=== PATIENT | female | born 1955 | race Caucasian/White ===

== ENCOUNTER 2022-11-06 12:08 | Outpatient (CLI) | payer MEDICARE, SELFPAY ==
--- NOTE | ~2022-11-06 | MM_ITS ---
EXAMINATION: MM diagnostic dennis LT w dylan HISTORY: Lump, lateral left breast/axillary area TECHNIQUE: Full field and spot ML, MLO and CC 3-D tomosynthesis images of the left breast were perfor med and synthetic 2-D images were generated. CAD analysis was submitted and interpreted. High resolut ion left upper outer and lower outer quadrant and left axillary breast ultrasound was performed. COMPARISON: Serial mammogram and ultrasound examinations dating back to 06/09/2017 BREAST PARENCHYMAL COMPOSITION: There are scattered areas of fibroglandular density. FINDINGS: MAMMOGRAPHIC FINDINGS: No interval suspicious mass or architectural distortion, malignant calcification, skin thickening or retraction of the left breast is evident. There are scattered benign calcifications. There is a biopsy marker on the left; history of prior benign left breast biopsy. ULTRASOUND: No suspicious mass or shadowing, cyst or other significant sonographic abnormality of the upper outer or lower outer quadrants of the left breast is detected. No left axillary mass lesion or abnormal shadowing is detected. IMPRESSION: 1. No mammographic evidence of malignancy 2. Routine mammographic screening is recommended. BI-RADS Category 1: Negative Reviewed, dictated and finalized at location A. ER SPRINKLER
--- NOTE | ~2022-11-06 | US_ITS ---
US breast LT limited DATE: 11/06/2022 15:12 INDICATION: Lateral left breast/axillary lump TECHNIQUE: Real-time and color flow imaging and Doppler analysis of the upper outer and lower-outer q uadrants of the left breast COMPARISON: November 06, 2019 diagnostic left mammogram FINDINGS: No suspicious mass or shadowing of the upper outer or lower outer quadrants of left breast is detected. IMPRESSION: BI-RADS Category 1: Negative Reviewed, dictated and finalized at Location A. Reviewed, dictated and finalized at location A. TICS PHYSICIAN
--- NOTE | ~2022-11-06 | US_ITS ---
US axilla LT DATE: 11/06/2022 15:12 INDICATION: Left lateral breast/axillary lump TECHNIQUE: Real-time and color flow imaging and Doppler analysis of the left axillary soft tissues COMPARISON: None FINDINGS: No suspicious mass or shadowing or other significant sonographic abnormality of the left ax illa is detected. IMPRESSION: Negative Reviewed, dictated and finalized at Location A. Reviewed, dictated and finalized at location A. VISION PRODUCTION ASSISTANT IMPRESSION: Negative
== END 2022-11-06 12:09 | disposition home or self-care (01) ==
PROVIDERS: PCP Emergency Medicine; Visit Provider Emergency Medicine
DX: N63.20 Unspecified lump in the left breast, unspecified quadrant (principal); R92.2 Inconclusive mammogram
CPT/HCPCS: 76642; 76882; 77061; 77065; G0279

== ENCOUNTER 2022-11-24 10:28 | Outpatient (CLI) | payer MEDICARE, SELFPAY ==
--- NOTE | 2022-11-24 10:32 | ECG_ITS ---
Measurements Intervals [place] Rate: P: NE: QRS: QRSD: T: QT: QTc: Interpretive Statements SINUS RHYTHM LEFT AXIS DEVIATION RIGHT BUNDLE BRANCH BLOCK LEFT VENTRICULAR HYPERTROPHY BASELINE ARTIFACT- I, II, III, AVR, AVL, AVF, V1-V6 ABNORMAL ECG Electronically Signed On 11-24-2022 14:04:43 CDT by Horace Galdamez D.O.
[2022-11-24 11:32] LABS: Anion Gap 4 mmol/L (8-16); Blood Urea Nitrogen 16 mg/dL (7-17); Calcium 8.9 mg/dL (8.4-10.2); Carbon Dioxide 31 mmol/L (22-30); Chloride 104 mmol/L (98-107); Estimated Glomerular Filt Rate > 60; Glucose 226 mg/dL (65-110); Potassium 4.5 mmol/L (3.4-5.0); Sodium 139 mmol/L (137-145)
== END 2022-11-24 10:29 | disposition home or self-care (01) ==
LOC: ANHSURGERY 10:31
PROVIDERS: Anesthesiology; PCP Emergency Medicine; Visit Provider Surgery
DX: E11.9 Type 2 diabetes mellitus without complications (principal); I10 Essential (primary) hypertension; I45.10 Unspecified right bundle-branch block
CPT/HCPCS: 36415; 80048; 93005

== ENCOUNTER 2022-11-26 01:04 | Day surgery (SDC) | payer MEDICARE, SELFPAY ==
--- NOTE | 2022-11-21 11:05 | PC.NURSE ---
Report to the Outpatient Waiting Room, entrance under the green pavilion located off [facility], at time __0900 on date __11/26/22 . Planned Procedure Time: _1100 . Time changes happen often and if your time is changed the preop area will call you the afternoon before. - You and your visitor will be asked to self-screen and do not enter if you have any COVID symptoms. - Only one visitor is requested with a max of two and NO children visitors are allowed at this time. - The patient visitor may be requested to leave or wait in car when not with patient due to distancing restrictions. - A mask is optional within the hospital at this time. Patients may have clear liquids (water, carbonated beverages, clear teas, apple juice) until 3 hours prior to surgery with a maximum of 20 ounces. - No food from midnight until time of surgery - Infants may have breast milk until 4 hours before surgery, formula 6 hours prior to surgery. - Children will be allowed to drink immediately following surgery. If applicable, please bring a bottle or sippy cup to assist with drinking. Juice, water, soda, and popsicles are readily available. For infants on formula, please bring formula the day of surgery. Pacifiers are allowed. Take the following medications with a SIP of water the morning of surgery: ___GABAPENTIN,LEVOTHYROXINE DO NOT STOP ANY OF YOUR OTHER PRESCRIPTION MEDICATIONS PRIOR TO SURGERY ?EXCEPT THE FOLLOWING Medications to discontinue per physician ____ALL VITAMINS/SUPPLEMENTS 3 DAYS PRE OP.LAST DOSE 11/22/22 HIBICLENS SHOWER MORNING OF SURGERY Please no make-up, nail mauritian, hairspray, perfume, deodorant, or body powder the day of surgery. No jewelry (including any body piercings) or valuables the day of surgery, leave them at home. Please take a shower or bath the night before, or the morning of, surgery with an antibacterial soap. Wear comfortable, loose fitting clothing. Children are encouraged to wear pajamas. - Jewelry must be removed prior to entering the operating room. Rings and piercings that are not removed may be cut off. - The hospital will not accept responsibility for valuables. - Please leave all valuables, including medications, at home the day of surgery. If you are going home after surgery, a licensed patient transportation driver must drive you home. - NO public transportation without another adult if you receive anesthesia. - We recommend that an adult stay with you for 24 hours following discharge. - We also recommend that you do not drive, make important decision, drink alcoholic beverages, or take any drugs that were not prescribed by your health care provider for at least 24 hours after your discharge time. For Pediatric surgeries, we recommend two adults accompany the child home. Follow any additional instructions given to you from your surgeon. If you or anyone in your household have experienced Covid symptoms in the past week, please notify your surgeon or the nurse liaison at the phone number below for possible testing. Telephone instructions given to __PATIENT and asked if any additional questions and then verbalized understanding. Patient advised to call surgeon office or pre surgery nurse liaison [phone] if any additional questions.
[2022-11-21 11:13] VITALS: BMI 48.2
[2022-11-26] VITALS (8 sets, daily range): BP systolic 126–168; BP diastolic 63–95; PULSE 71–98; RESP 14–17; TEMP 35.7; O2SAT 93–100
[2022-11-26 09:41] LABS: Glucose Point of Care 192 mg/dl (65-105)
[2022-11-26] MEDS: KETOROLAC 15 MG/ML VIAL (*BKC) IV PUSH (09:45)
[2022-11-26] MEDS: ACETAMINOPHEN 500 MG TABLET 1000 MG PO (09:45)
[2022-11-26] MEDS: LACTATED RINGERS 1,000 ML 30 ML IV CONT (09:45)
--- NOTE | 2022-11-26 09:54 | WPDANESEPPF ---
Anes - Initial Pre Proc Eval Procedure: Operation Date: 11/26/22 11:00 Proposed Procedures p Excision Left Breast Mass - Yevgeniy Martell MD Date/Time: 11/26/22 09:54 Surgeon: Yevgeniy Martell MD Pre Op Diagnosis: Lt Breast Mass Patient Data Age: 67 Gender: F Height: 1.64 m Weight: 129.3 kg Allergies Allergy/AdvReac Type Severity Reaction Status Date / Time Opioids-Meperidine and Allergy Mild ITCHING Verified 11/21/22 10:53 Related RASH Opioids - Morphine Analogues Allergy Unknown Itching Verified 11/21/22 11:00 ANTIBIOTIC AdvReac Nausea Uncoded 11/21/22 10:53 Home Medications Medication Instructions Recorded Confirmed Type escitalopram oxalate 20 mg tablet 20 mg PO DAILY 10/13/22 11/21/22 History (Lexapro) gabapentin 300 mg capsule 300 mg PO DAILY 10/13/22 11/21/22 History (Neurontin) glimepiride 4 mg tablet (Amaryl) 4 mg PO QAM 10/13/22 11/21/22 History irbesartan 150 mg tablet 150 mg PO DAILY 10/13/22 11/21/22 History levothyroxine 200 mcg tablet 200 mcg PO DAILY 10/13/22 11/21/22 History (Synthroid) levothyroxine 25 mcg tablet 25 mcg PO DAILY 10/13/22 11/21/22 History (Synthroid) rosuvastatin 20 mg tablet (Crestor) 20 mg PO DAILY 10/13/22 11/21/22 History aspirin 81 mg tablet,delayed 81 mg PO HS 11/21/22 11/21/22 History release (Adult Low Dose Aspirin) cholecalciferol (vitamin D3) 25 25 mcg PO DAILY 11/21/22 11/21/22 History mcg (1,000 unit) tablet Laboratory Tests 11/26/22 09:38 POC Capillary Glucose 192 mg/dl H mg/dl (65-105) Patient hx anesthesia problems: none Family hx anesthesia problems: none Results Review: All pre-operative results and documents have been reviewed as part of the pre-operative evaluation. [facility] Past Medical History Medical History Anxiety Breast cancer Diabetes Hypertension Surgical History Surgical History H/O mastectomy H/O tubal ligation Family History Family History Father Hypertension Mother Patient's mother is in good health, Onset Age: 85 Other Family history of malignant neoplasm of kidney Social History Social History Smoking status: Never smoker Alcohol intake: current Alcohol use details: Rarely Living arrangements: with family Spiritual care concerns: No Anes - Eval Final PreProcedure Day of Procedure 11/26/22 09:54 Patient weight: super morbidly obese Heart: regular rate and rhythm Lungs: clear to auscultation Airway: Mallampati scale class III Neurological: alert and oriented Last oral intake: >/= 8 hours ASA classification: IV Emergent: no Anesthetic plan: proceed Anesthesia type and monitoring: general LMA and standard monitoring Results Review: All pre-operative results and documents have been reviewed as part of the pre-operative evaluation. Informed Consent: The patient's anesthetic plan and its attendant risks and benefits were discussed with the patient/family/POA. Questions were solicited and answers provided to the satisfaction of the patient/family/POA.
--- NOTE | 2022-11-26 10:06 | WPDHPUPDATE1 ---
History and Physical Update Update Date/Time: 11/26/22 10:06 History and Physical has been reviewed, including an updated exam of the patient. There are NO changes in the patient's condition. Risks, benefits, and alternatives have been discussed and questions answered. Patient agrees to proceed with procedure.
[2022-11-26] MEDS: ceFAZolin 3 GM/D5W 100 ML 100 ML IVPB (10:36)
[2022-11-26] MEDS: BUPIVACAINE/EPINEPHRINE 0.25% 50 ML VIAL INFILTRATE (11:12)
--- NOTE | 2022-11-26 11:18 | SUR.OPER ---
Fresh specimen sent with NATALIIA Malone to lab. Received by [place].
--- NOTE | 2022-11-26 11:33 | W.PM.PROC2 ---
Procedure Note - Detailed Date of Procedure 11/26/22 Pre-op Diagnosis Lt Breast Mass Post-op Diagnosis Other (Left axillary lymphadenopathy) Procedure Performed Excision deep left axillary nodes, excisional biopsy Surgeon Yevgeniy Martell MD Financial Advocate [facility] Anesthesia General and Local (0.5% Marcaine with epinephrine) Indications Patient has a history of right breast cancer. She noticed a subcutaneous mass near the border of the pectoralis major on the left side. It was difficult to tell if this was in the tail of the breast or the axilla. She had mammography as well as ultrasound of the left breast and left axilla. The palpable mass did not show on imaging. She is taken to surgery at this time for excisional biopsy. Findings Although the procedure was listed as a left breast biopsy, this was in the axilla and deep in the axilla consistent with axillary lymphadenopathy. It appeared to be a cluster of lymph nodes not 1 or 2 very large lymph nodes. Grossly, this was not suspicious for malignancy. Description of Procedure The patient was checked in the preoperative holding area. The mass was deep in the upper outer quadrant or axilla on the left. The proposed incision was marked on the skin. Patient was taken to surgery and induced into general anesthesia. The left breast and axilla were prepped and draped such that the left arm was in the field and mobile at the shoulder. I again palpated the mass. Local anesthesia was infiltrated over the area of the anticipated incision. The left arm was held up to expose the area more fully. Cautery was used for hemostasis and we dissected through the subcutaneous fat. The nodule was then palpable as we entered the axilla and was clearly in the axillary tissue. I was able to palpate this but it was pretty deep in the lower axilla. I dissected down to the area. I used a self-retaining clamp to facilitate the deeper dissection. Eventually I came to the mass which appeared to be lymph nodes. I used the cautery and some blunt dissection. We dissected the axillary mass free from the surrounding tissues. Eventually I was able to elevate the axillary mass and continued the dissection eventually freeing it entirely from the surrounding tissues. The very into the mass was deep nearly to the subscapularis muscle. We did not dissect cephalad enough to encounter any significant blood vessels or nerves. The mass was passed off to pathology fresh. I checked the wound again and ensured that hemostasis was adequate. The wound was then closed in layers with 3-0 Monocryl interrupted suture. The skin was closed with subcuticular interrupted 4-0 Vicryl skin suture. Wound was dressed with Exofin surgical adhesive. The patient was awakened and taken to recovery in good condition. Sponge and needle counts were correct x2. Estimated Blood Loss -5 Drains No Packing No Pathology Yes (Left axillary lymphadenopathy) Complications No immediate complications Condition Stable Disposition PACU [facility] Billing Surgery - Charge Forward: Surgery Billing (Excisional biopsy deep left axillary lymph nodes)
[2022-11-26 11:45] LABS: Glucose Point of Care 188 mg/dl (65-105)
== END 2022-11-26 13:22 | disposition home or self-care (01) ==
PROVIDERS: PCP Emergency Medicine; Visit Provider Surgery
PROC: (CPT 38525; principal; 2022-11-26 11:00)
DX: R59.0 Localized enlarged lymph nodes (principal); I10 Essential (primary) hypertension; E11.9 Type 2 diabetes mellitus without complications; F41.9 Anxiety disorder, unspecified; Z85.3 Personal history of malignant neoplasm of breast; Z79.84 Long term (current) use of oral hypoglycemic drugs; Z79.82 Long term (current) use of aspirin; E66.01 Morbid (severe) obesity due to excess calories; Z68.42 Body mass index [BMI] 45.0-49.9, adult
CPT/HCPCS: 38525; 82948; 88304; 88307; A9270; J0690; J1100; J1885; J2250; J2370; J2405; J2704; J3010; J7120